=== PATIENT | male | born 1945 | race Caucasian/White ===

== ENCOUNTER 2016-08-29 04:53 | Inpatient (IN) | payer MEDICARE, BC ==
[~2016-08-29 04:53] MED LIST: ALAWAY10 M1 EACH EYE; ASPIR 8181 M1 PO; ASPIRIN EC81 MG PO; CALCIUM 600 +1 EA21 PO; FLOMAX0.4 M1 PO; FLONASE ALLERG9.9 ML; LISINOPRIL20 M1 PO; METOPROLOL TART50 M2 PO; MULTI VITAMIN1 EAC2 PO; OMEPRAZOLE20 M3 PO; POTASSIUM99 M4 PO; PRAVASTATIN SOD40 M1 PO; ROXICODONE5 M2 PO; TYLENOL325 M2 PO; ULTRAM50 M1 PO
[2016-08-29 06:14] LABS: PROTHROMBIN TIME 11.6 SECONDS (9.0-13.6)
[2016-08-30 05:25] LABS: EOS % 0.4 % (0-7); HCT-HEMATOCRIT 33.8 % (36.0-53.5); HGB-HEMOGLOBIN 11.7 gm/dl (13.5-17.0); IMMATURE GRANULOCYTES ABSOLUTE 0.02 tho/cmm (0-0.03); IMMATURE GRANULOCYTES PERCENT 0.2 % (0-0.3); LYMPH % 16.4 % (20-45); LYMPH ABSOLUTE COUNT 1.8 tho/cmm (0.8-4.5); MCH (MEAN CORPUSCULAR HGB) 31.2 pg (28.0-32.0); MCHC MEAN CORPUSCULAR HGB CONC 34.6 % (32.0-36.0); MCV (MEAN CELL VOLUME) 90.1 fl (82.0-96.0); MEAN PLATELET VOLUME 10.6 cmc (9.4-12.4); MONO % 11.4 % (0-12); MONOCYTE ABSOLUTE COUNT 1.2 tho/cmm (0.0-1.2); NEUTROPHIL ABSOLUTE COUNT 7.8 tho/cmm (1.6-8.0); NEUTROPHIL-AUTOMATED 7.8 tho/cmm (1.6-8.0); NEUTROPHILS % 71.6 % (40-80); PLATELET COUNT 190 tho/cmm (150-450); RED BLOOD COUNT 3.75 mil/cmm (4.40-5.70); RED CELL DISTRIBUTION WIDTH 12.2 % (12.4-16.4); WHITE BLOOD COUNT 10.8 tho/cmm (4.0-10.0)
[2016-08-30] MEDS ORDERED: NORCO 5-325 TA1 EACH PO (12:31)
[2016-08-30] MEDS ORDERED: ASPIRIN325 M3 PO (13:27)
== END 2016-08-30 13:59 | DRG 470 ==
LOC: SHSB 04:53 → ORE 07:00 → PACU 09:06 → 5EA 10:30
PROVIDERS: Physician Assistant; ADMIT Orthopaedic Surgery Sports Medicine
PROC: 0SRC0J9 Replacement of Right Knee Joint with Synthetic Substitute, Cemented, Open Approach (ICD-10-PCS; principal; 2016-08-29)
DX: M17.11 Unilateral primary osteoarthritis, right knee (principal); I10 Essential (primary) hypertension; E78.5 Hyperlipidemia, unspecified; I25.10 Atherosclerotic heart disease of native coronary artery without angina pectoris; K21.9 Gastro-esophageal reflux disease without esophagitis; Z87.891 Personal history of nicotine dependence; Z88.5 Allergy status to narcotic agent; Z88.8 Allergy status to other drugs, medicaments and biological substances; Z79.82 Long term (current) use of aspirin; Z79.899 Other long term (current) drug therapy; Z95.1 Presence of aortocoronary bypass graft; Z96.652 Presence of left artificial knee joint
CPT/HCPCS: C1713; J0171; J0690; J1170; J2270; J2795